=== PATIENT | male | born 1965 | race Caucasian/White ===

== ENCOUNTER 2016-11-13 15:16 | Inpatient (IN) | payer OTHER ==
[2016-11-13 16:05] LABS: APPEARANCE,URINE CLEAR; BILIRUBIN,URINE NEGATIVE (NEGATIVE); GLUCOSE, URINE NEGATIVE (NEGATIVE); KETONES,URINE NEGATIVE (NEGATIVE); LEUKOCYTE ESTERASE,URINE NEGATIVE (NEGATIVE); NITRITE,URINE NEGATIVE (NEGATIVE); PROTEIN,URINE NEGATIVE (NEGATIVE); URINE SPECIFIC GRAVITY 1.008; UROBILINOGEN,URINE NEGATIVE mg/dL (<2.0)
[2016-11-13] MEDS ORDERED: IPRATROPIUM/ALBUTEROL 0.5-2.5 MG/3 ML AMPUL NEB ONE ×3 (16:39→18:30)
[2016-11-13] MEDS ORDERED: OXYCODONE-ACETAMINOPHEN 5-325 MG TABLET PO ONE (17:52)
--- NOTE | 2016-11-13 18:14 | ER Document Report ---
ED General - General Chief Complaint: Shortness Of Breath Stated Complaint: WEAKNESS Mode of Arrival: Ambulatory Information source: Patient Notes: 51-year-old male presents with difficulty breathing over the past 2-3 weeks. Patient denies any fevers admits to shortness of breath. Patient denies any productivity to cough. [facility] [place] IN LAST 30 DAYS: No - HPI Onset: Last week Onset/Duration: Persistent Quality of pain: Achy Severity: Mild Pain Level: 1 Associated symptoms: Nonproductive cough, Shortness of breath Exacerbated by: Denies Relieved by: Denies Similar symptoms previously: Yes Recently seen / treated by doctor: Yes - Related Data Allergies/Adverse Reactions: No Known Allergies Allergy (Verified 05/27/14 08:48) Past Medical History - Social History Smoking Status: Former Smoker Cigarette use (# per day): No Chew tobacco use (# tins/day): No Smoking Education Provided: No Frequency of alcohol use: None Drug Abuse: None Family History: None - Past Medical History Cardiac Medical History: Reports: Hx Hypertension Pulmonary Medical History: Denies: Hx Tuberculosis GI Medical History: Reports: Hx Gastroesophageal Reflux Disease Psychiatric Medical History: Reports: Hx Bipolar Disorder, Hx Depression Past Surgical History: Reports: Hx Orthopedic Surgery, Hx Tonsillectomy. Denies : Hx Pacemaker - Immunizations Hx Diphtheria, Pertussis, Tetanus Vaccination: Yes - 2008 Review of Systems - Review of Systems Notes: REVIEW OF SYSTEMS: CONSTITUTIONAL : Denies fever, chills, or sweats. Denies recent illness. EENT: Denies eye, ear, throat, or mouth pain or symptoms. Denies nasal or sinus congestion or discharge. Denies throat, tongue, or mouth swelling or difficulty swallowing. CARDIOVASCULAR: Denies chest pain. Denies palpitations or racing or irregular heart beat. Denies ankle edema. RESPIRATORY: Admits shortness breath difficulty breathing GASTROINTESTINAL: Denies abdominal pain or distention. Denies nausea, vomiting , or diarrhea. Denies blood in vomitus, stools, or per rectum. Denies black, tarry stools. Denies constipation. GENITOURINARY: Denies difficulty urinating, painful urination, burning, frequency, blood in urine, or discharge. MUSCULOSKELETAL: Denies back or neck pain or stiffness. Denies joint pain or swelling. SKIN: Denies rash, lesions or sores. HEMATOLOGIC : Denies easy bruising or bleeding. LYMPHATIC: Denies swollen, enlarged glands. NEUROLOGICAL: Denies confusion or altered mental status. Denies passing out or loss of consciousness. Denies dizziness or lightheadedness. Denies headache. Denies weakness or paralysis or loss of use of either side. Denies problems with gait or speech. Denies sensory loss, numbness, or tingling. Denies seizures. PSYCHIATRIC: Denies anxiety or stress. Denies depression, suicidal ideation, or homicidal ideation. ALL OTHER SYSTEMS REVIEWED AND NEGATIVE. Dictation was performed using [employer] voice recognition software PHYSICAL EXAMINATION: GENERAL: Well-appearing, well-nourished and in no acute distress. Patient satting 85% without oxygen HEAD: Atraumatic, normocephalic. EYES: Pupils equal round and reactive to light, extraocular movements intact, sclera anicteric, conjunctiva are normal. ENT: Nares patent, oropharynx clear without exudates. Moist mucous membranes. NECK: Normal range of motion, supple without lymphadenopathy LUNGS: Decreased breath sounds all throughout, coarse wheezing HEART: Regular rate and rhythm without murmurs ABDOMEN: Soft, nontender, nondistended abdomen. No guarding, no rebound. No masses appreciated. Musculoskeletal: Normal range of motion, no pitting or edema. No cyanosis. NEUROLOGICAL: Cranial nerves grossly intact. Normal speech, normal gait. Normal sensory, motor exams PSYCH: Normal mood, normal affect. SKIN: Warm, Dry, normal turgor, no rashes or lesions noted. Physical Exam - Vital signs Vitals: Temp Pulse Resp BP Pulse Ox 98.2 F 64 21 H 144/83 H 92 11/13/16 15:31 11/13/16 15:31 11/13/16 15:31 11/13/16 15:31 11/13/16 15:31 Course - Re-evaluation Re-evalutation: 11/13/16 18:14 Patient was immediately placed on nasal cannula on arrival, lab work has been ordered and is pending nurse 11/13/16 19:42 Lab work does note mild hypokalemia, patient did have very coarse wheezing inspiratory and expiratory, he was given 3 DuoNeb nebs Solu-Medrol. I believe the patient's having COPD exacerbation. On room air patient is satting 85% and does require oxygenation. Looks well no pneumonia is noted, influenza was negative. Patient will be admitted to hospitalist service for further evaluation and care - Vital Signs Vital signs: Temp Pulse Resp BP Pulse Ox 98.2 F 64 21 H 144/83 H 97 11/13/16 15:31 11/13/16 15:31 11/13/16 15:31 11/13/16 15:31 11/13/16 15:53 - Laboratory Result Diagrams: 11/13/16 18:20 11/13/16 18:20 Laboratory results interpreted by me: 11/13/16 11/13/16 18:20 18:20 MCV 99 H RDW 14.5 H Sodium 147.2 H Potassium 3.1 L Carbon Dioxide 34 H Glucose 160 H Critical Care Note - Critical Care Note Total time excluding time spent on procedures (mins): 34 Comments: 34 minutes of critical care time spent in direct contact evaluating and reevaluating the patient, treating symptoms, reviewing labs and studies and speaking with family and consultants excluding any procedures Discharge - Discharge Clinical Impression: Hypoxemia, Obstructive chronic bronchitis with exacerbation Condition: Stable Disposition: ADMITTED INPATIENT Admitting Provider: Hospitalist Unit Admitted: Telemetry
[2016-11-13] MEDS ORDERED: METHYLPREDNISOLONE INJ 125 MG/2 ML SDV IV ONE (18:30)
[2016-11-13] MEDS ORDERED: PREGABALIN 100 MG CAPSULE PO ONE (18:36)
[2016-11-13 18:38] LABS: ABSOLUTE MONOCYTES (AUTO) 0.4 10^3/uL (0.1-1.4); ABSOLUTE NEUT (AUTO) 3.4 10^3/uL (1.7-8.2); BASOPHILS % (AUTO) 0.5 % (0-2); EOSINOPHILS % (AUTO) 0.7 % (0-6); HEMATOCRIT 43.7 % (37.9-51.0); HEMOGLOBIN 14.5 g/dL (13.5-17.0); HGB HCT DIFFERENCE -0.2; LYMPHOCYTES % (AUTO) 34.3 % (13-45); MEAN CORPUSCULAR HEMOGLOBIN 32.8 pg (27.0-33.4); MEAN CORPUSCULAR HGB CONC 33.2 g/dL (32.0-36.0); MEAN CORPUSCULAR VOLUME 99 fl (80-97); MONOCYTES % (AUTO) 6.8 % (3-13); RED BLOOD COUNT 4.42 10^6/uL (4.35-5.55); RED CELL DISTRIBUTION WIDTH 14.5 % (11.5-14.0); SEGMENTED NEUTROPHILS % (AUTO) 57.7 % (42-78); WHITE BLOOD COUNT 5.9 10^3/uL (4.0-10.5)
[2016-11-13 18:56] LABS: ALANINE AMINOTRANSFERASE 40 U/L (21-72); ALBUMIN 4.4 g/dL (3.5-5.0); ALKALINE PHOSPHATASE 97 U/L (38-126); ANION GAP 14 (5-19); ASPARTATE AMINO TRANSFERASE 26 U/L (17-59); BILIRUBIN,DIRECT 0.2 mg/dL (0.0-0.4); BILIRUBIN,TOTAL 0.9 mg/dL (0.2-1.3); BLOOD UREA NITROGEN 8 mg/dL (7-20); CALCIUM 9.4 mg/dL (8.4-10.2); CARBON DIOXIDE 34 mmol/L (22-30); CHLORIDE 99 mmol/L (98-107); CREATINE KINASE 71 U/L (55-170); GLUCOSE 160 mg/dL (75-110); POTASSIUM 3.1 mmol/L (3.6-5.0); SODIUM 147.2 mmol/L (137-145); TOTAL PROTEIN 7.4 g/dL (6.3-8.2)
[2016-11-13 19:08] LABS: CREATINE KINASE MB 0.77 ng/mL (<4.55)
[2016-11-13 19:10] LABS: TROPONIN I < 0.012 ng/mL
[2016-11-13] MEDS ORDERED: POTASSIUM CHLORIDE 10 MEQ TABLET.SA PO ONE (19:40)
[2016-11-14] MEDS ORDERED: ACETAMINOPHEN 325 MG TABLET PO PRN (02:17)
[2016-11-14] MEDS ORDERED: GUAIFENESIN SYRP 200 MG/10 ML UDC PO PRN (02:17)
[2016-11-14] MEDS ORDERED: NICOTINE 7 MG/24 HR PATCH.TD24 TD PRN (02:20)
--- NOTE | 2016-11-14 02:38 | PDOC H&P ---
History of Present Illness Admission Date/PCP: 11/13/16 20:27 MD Patient complains of: WEAKNESS History of Present Illness: SHARATH HOBSON is a 51 year old male, who denies any known chronic pulmonary disease, including asthma, COPD, or emphysema, but with known underlying hypertension, bipolar disorder, posttraumatic stress disorder, agoraphobia, who presents in referral from the local [facility] when he was noted to be hypoxic there. Patient does describe a several day history of dry cough. Nausea but no vomiting. No fever or chills. Occasional diarrhea. No chest or abdominal pain. When I entered the room, patient was standing trembling, denying any respiratory complaints at that time. He stated he had not taken his psychiatric medications for the last day or so, stating several times "I had no idea I was coming here." Stated he went to the [facility] today to be seen by a psychiatrist and was instead referred to the emergency room. States he stopped smoking 3 weeks ago. Could not verbalize exactly how much he did smoke. Denies alcohol or illicit drug use. According to his ER nurse, patient did try to leave the emergency room earlier, but was convinced to stay. Patient has been discussed with emergency room physician who evaluated the patient. Saturation dropped to 85% on room air in the emergency room, with coarse wheezing noted by the emergency room physician diffusely throughout both lungs.. Laboratory results are listed in [employer] and are reviewed. X-ray summary results are listed below, with full report(s) reviewed. . EKG reviewed. And compared to a tracing from July 25, 2012 Social history/personal habits: . Has adult children. Disabled due to his mental problems. Personal habits as noted above. Allergies/adverse reactions NKDA. Home medications Home medications initially autopopulated into [employer] may not accurately reflect patient's true medications, dosages, and/or frequencies. Unfortunately, patient uncertain of medications/dosages/frequencies, although he did state that he took Klonopin 1 mg by mouth 3 times a day.. REVIEW OF SYSTEMS: Constitutional: No fever or chills. Eyes: Wears glasses. ENT: No swallowing problems or complaints. No hearing problems or complaints. Pulmonary: See history and present illness. Cardiovascular: No current complaints, including chest pain. Gastrointestinal: See history and present illness. Skin: No current complaints, including rashes. Hematologic: No unusual easy bruising or bleeding. Neurologic: Chronic painful peripheral neuropathy. Musculoskeletal: No current complaints, including painful joints. Psychiatric: See history and present illness. Endocrine: No current complaints, including polyuria. Genitourinary: No current complaints, including dysuria. PHYSICAL EXAMINATION: Neither height nor weight are recorded on the chart.Temperature 98.2. Pulse 80 and regular. Blood pressure 155/93. 92% saturation on 2 L oxygen per nasal cannula. Respirations are 28 and unlabored, but patient again is quite anxious , with some trembling. Slightly overweight otherwise well-nourished well-developed though chronically ill-appearing male who appears in fair amount of distress. Standing. Slight trembling. Initially refused to sit down or lie down on his bed, due to his anxiety. Eventually was able to convince him to lie back on his bed. Female emergency room secretary to the vice president Reema is present. Skin is warm and dry. No grossly obvious evidence of rash in areas of skin examined. No subcutaneous nodules palpated. ENT: Hearing grossly normal to normal conversation. Tongue midline on protrusion pink and slightly moist. Eyes: No scleral icterus. Pupils equal and reactive to light at 4 mm. [place] conjunctivae. No raccoon eyes. Neck is supple and nontender to gentle active range of motion and palpation. Midline trachea. No palpable thyroid nodule mass enlargement or tenderness. Lymphatic: No palpable cervical or clavicular nodes. Neck and lymphatic exams limited by patient body habitus. Psychiatric: Difficult to evaluate due to his current status. See history and present illness. Also see above comments. Lungs: Auscultation reveals clear and equal breath sounds bilaterally. No use of accessory respiratory muscles. Cardiovascular: Heart regular rate and rhythm, without gallop murmur or rub. No carotid or abdominal aortic bruits. Was not able to adequately examine his lower extremities due to discomfort, which patient stated was due to his chronic neuropathy. "I hurt all the time in my legs and feet." No outward evidence of infection in the lower calves, ankles and feet by visual exam. Abdomen: soft, slightly: distended nontender with positive bowel sounds. Unable to adequately evaluate abdomen for masses or organomegaly due to distention. Extremities: Feet are warm and dry. No grossly obvious visual evidence of calf swelling. Neurologic: Moves all 4 extremities grossly normally. Patellar reflexes absent. Moves From a standing to a seated to a supine position without undue difficulty. Past Medical History Cardiac Medical History: Reports: Hypertension Pulmonary Medical History: Denies: Asthma, Chronic Obstructive Pulmonary Disease (COPD), Tuberculosis GI Medical History: Reports: Gastroesophageal Reflux Disease Psychiatric Medical History: Reports: Bipolar Disorder, Depression, Post Traumatic Stress Disorder - AgoraPhobia. Past Surgical History Past Surgical History: Reports: Orthopedic Surgery, Tonsillectomy Denies: Pacemaker Social History Information Source: Patient, Emergency Med Personnel, [facility] Records Lives with: Spouse/Significant other Smoking Status: Former Smoker Frequency of Alcohol Use: None Hx Recreational Drug Use: No Hx Prescription Drug Abuse: No - Advance Directive Resuscitation Status: Full Code Surrogate healthcare decision maker:: Family History Family History: None Parental Family History Reviewed: Yes Children Family History Reviewed: Yes Sibling(s) Family History Reviewed.: Yes Medication/Allergy Home Medications: RX: Baclofen [Baclofen 10 mg Tablet] 10 mg PO Q8 11/13/16 RX: Clonidine HCl [Catapres 0.1 mg Tablet] 0.1 mg PO Q8 11/13/16 RX: Divalproex Sodium [Depakote ER 500 mg Tab.sr] 1,000 mg PO DAILY 11/13/16 RX: Furosemide [Lasix] 80 mg PO DAILY 11/13/16 RX: Losartan Potassium [Cozaar 100 mg Tablet] 50 mg PO DAILY 11/13/16 RX: Mirtazapine [Remeron] 30 mg PO QHS 11/13/16 RX: Potassium Gluconate [Potassium] 99 mg PO DAILY 11/13/16 RX: Pregabalin [Lyrica] 150 mg PO Q8 11/13/16 RX: Trazodone HCl [Desyrel] 200 mg PO QHS 11/13/16 Albuterol Sulfate [Proair HFA] 1 - 2 puff IH Q4 PRN #1 inhaler 11/16/16 Prednisone [Deltasone 10 mg Tablet] 10 mg PO ASDIR PRN #21 tablet 11/16/16 RX: Doxycycline Hyclate 100 mg PO BID #14 capsule 11/16/16 Allergies/Adverse Reactions: No Known Allergies Allergy (Verified 05/27/14 08:48) Physical Exam Vital Signs: Temp Pulse Resp BP Pulse Ox 98.2 F 64 12 155/93 H 90 L 11/13/16 15:31 11/13/16 15:31 11/13/16 20:03 11/13/16 23:40 11/13/16 23:40 Results Impressions: Chest X-Ray 11/13/16 15:31 IMPRESSION: NO ACUTE RADIOGRAPHIC FINDING IN THE CHEST. Assessment & Plan - Diagnosis (1) Hypokalemia Is this a current diagnosis for this admission?: YesPlan: Potassium replacement with follow-up chemistry. (2) Hypoxemia Is this a current diagnosis for this admission?: YesPlan: Suspected due to underlying COPD exacerbation. Should clear with time and treatment. (3) Anxiety Is this a current diagnosis for this admission?: YesPlan: Resume home medications as appropriate once these have been determined and reviewed. (4) Bipolar disorder Qualifiers: Active/Remission status: remission status unspecified Qualified Code (s): F31.9 - Bipolar disorder, unspecified Is this a current diagnosis for this admission?: YesPlan: Resume home medications as appropriate once these have been determined and reviewed. (5) PTSD (post-traumatic stress disorder) Is this a current diagnosis for this admission?: YesPlan: Resume home medications as appropriate once these have been determined and reviewed. (6) Peripheral neuropathy Qualifiers: Peripheral neuropathy type: polyneuropathy, unspecified Qualified Code(s): G62.9 - Polyneuropathy, unspecified Is this a current diagnosis for this admission?: YesPlan: Resume home medications as appropriate once these have been determined and reviewed. (7) COPD exacerbation Is this a current diagnosis for this admission?: YesPlan: Patient will be admitted under COPD exacerbation protocol. Incentive spirometry twice a day. PRN DuoNeb's. With patient's current psychiatric stress level, will forego steroids, due to concern for worsening same with steroid psychosis. Antibiotics will consist of intravenous Zithromax and Rocephin.. Patient is a full code. I have strongly encouraged patient not to get out of bed without notifying staff , , to avoid a fall with injury. Knee high SCDs for DVT prophylaxis, along with subcutaneous Lovenox Impression and plans were discussed with patient, who concurs. Time spent in evaluation and management of patient: 66 minutes. - Inpatient Certification Based on my medical assessment, after consideration of the patient's comorbidities, presenting symptoms, or acuity I expect that the services needed warrant INPATIENT care.: Yes I certify that my determination is in accordance with my understanding of Medicare's requirements for reasonable and necessary INPATIENT services [42 CFR 412.3e].: Yes Medical Necessity: Significant Comorbidiites Make Outpatient Treatment Too Risky , Need Close Monitoring Due to Risk of Patient Decompensation, Need For Continuous Telemetry Monitoring, Need for Nebulizer Therapy and Monitoring of Response, Need for IV Antibiotics, Risk of Complication if Not Cared For in Hospital, Risk of Diagnosis Which Will Require Inpatient Eval/Care/Monitoring Post Hospital Care: D/C or Transfer Summary
[2016-11-14] MEDS ORDERED: CEFTRIAXONE 1 GM/D5W RTU 1 GM/50 ML RTUPB IV ONE (03:00)
[2016-11-14] MEDS: LORAZEPAM 0.5 MG TABLET PO PRN ×2 (03:01→21:04)
[2016-11-14 03:26] LABS: ABSOLUTE LYMPHOCYTES (AUTO) 0.5 10^3/uL (0.5-4.7); ABSOLUTE MONOCYTES (AUTO) 0.1 10^3/uL (0.1-1.4); ABSOLUTE NEUT (AUTO) 5.4 10^3/uL (1.7-8.2); BASOPHILS % (AUTO) 0.2 % (0-2); HEMATOCRIT 42.8 % (37.9-51.0); HEMOGLOBIN 14.3 g/dL (13.5-17.0); HGB HCT DIFFERENCE 0.1; LYMPHOCYTES % (AUTO) 8.3 % (13-45); MEAN CORPUSCULAR HEMOGLOBIN 32.6 pg (27.0-33.4); MEAN CORPUSCULAR HGB CONC 33.3 g/dL (32.0-36.0); MEAN CORPUSCULAR VOLUME 98 fl (80-97); MONOCYTES % (AUTO) 1.2 % (3-13); RED BLOOD COUNT 4.38 10^6/uL (4.35-5.55); SEGMENTED NEUTROPHILS % (AUTO) 90.3 % (42-78)
[2016-11-14 03:33] LABS: ANION GAP 16 (5-19); BLOOD UREA NITROGEN 11 mg/dL (7-20); CALCIUM 10.1 mg/dL (8.4-10.2); CARBON DIOXIDE 28 mmol/L (22-30); CHLORIDE 103 mmol/L (98-107); CREATININE RESULT 0.66 mg/dL (0.52-1.25); GLUCOSE 168 mg/dL (75-110); POTASSIUM 3.8 mmol/L (3.6-5.0); SODIUM 146.9 mmol/L (137-145)
[2016-11-14] MEDS: AZITHROMYCIN 500 MG in DEXTROSE 5%-WATER 250 ML IV SCH (09:19)
[2016-11-14] MEDS: ENOXAPARIN SODIUM INJ 40 MG/0.4 ML DISP.SYRIN SUBCUT SCH (09:20)
--- NOTE | 2016-11-14 10:15 | PDOC PROGRESS REPORT ---
Subjective Progress Note for:: 11/14/16 Subjective:: Reports the shortness of breath is improved. Physical Exam Vital Signs: Temp Pulse Resp BP Pulse Ox 97.7 F 69 16 158/94 H 93 11/14/16 07:55 11/14/16 08:57 11/14/16 08:57 11/14/16 07:55 11/14/16 08:57 Intake & Output 11/13/16 11/14/16 11/15/16 06:59 06:59 06:59 Intake Total 2 Balance 2 Weight 100.698 kg General appearance: PRESENT: no acute distress Eye exam: PRESENT: conjunctiva pink. ABSENT: scleral icterus Mouth exam: PRESENT: moist, tongue midline Neck exam: ABSENT: JVD Respiratory exam: PRESENT: rhonchi, wheezes - Few scattered expiratory wheezes. ABSENT: rales Cardiovascular exam: PRESENT: RRR. ABSENT: diastolic murmur, rubs, systolic murmur GI/Abdominal exam: PRESENT: normal bowel sounds, soft. ABSENT: distended, guarding, mass, organolmegaly, rebound, tenderness Extremities exam: ABSENT: calf tenderness, clubbing, pedal edema Neurological exam: PRESENT: alert, awake, oriented to person, oriented to place , oriented to time, oriented to situation, CN II-XII grossly intact. ABSENT: motor sensory deficit Psychiatric exam: PRESENT: appropriate affect Skin exam: PRESENT: dry, intact, warm. ABSENT: cyanosis, rash Results Laboratory Results: 11/14/16 03:11 11/14/16 03:11 11/14/16 11/14/16 11/14/16 03:11 03:11 03:11 WBC 6.0 RBC 4.38 Hgb 14.3 Hct 42.8 MCV 98 H MCH 32.6 MCHC 33.3 RDW 15.0 H Plt Count 245 Seg Neutrophils % 90.3 H Lymphocytes % 8.3 L Monocytes % 1.2 L Eosinophils % 0.0 Basophils % 0.2 Absolute Neutrophils 5.4 Absolute Lymphocytes 0.5 Absolute Monocytes 0.1 Absolute Eosinophils 0.0 Absolute Basophils 0.0 Sodium 146.9 H Potassium 3.8 Chloride 103 Carbon Dioxide 28 Anion Gap 16 BUN 11 Creatinine 0.66 Est GFR ( Amer) > 60 Est GFR (Non-Af Amer) > 60 Glucose 168 H Calcium 10.1 Magnesium 2.0 TSH 0.28 L Impressions: Chest X-Ray 11/13/16 15:31 IMPRESSION: NO ACUTE RADIOGRAPHIC FINDING IN THE CHEST. Assessment & Plan - Diagnosis (1) COPD exacerbation Is this a current diagnosis for this admission?: YesPlan: Patient reports he feels better but still having some hypoxia. We'll continue with the antibiotics as well as IV Solu-Medrol. We'll also continue nebulizers as needed (2) Hypoxemia Is this a current diagnosis for this admission?: YesPlan: Patient's room air saturations this morning are 85%. Continue with oxygen and continue treatment of COPD. (3) Hypokalemia Is this a current diagnosis for this admission?: YesPlan: Resolved. (4) AGAROPHOBIA Is this a current diagnosis for this admission?: YesPlan: We'll give Ativan as needed (5) Anxiety Is this a current diagnosis for this admission?: YesPlan: Ativan when necessary (6) Bipolar disorder Is this a current diagnosis for this admission?: YesPlan: Stable (7) PTSD (post-traumatic stress disorder) Is this a current diagnosis for this admission?: YesPlan: asymptomatic (8) Peripheral neuropathy Is this a current diagnosis for this admission?: Yes (9) Tobacco dependency Is this a current diagnosis for this admission?: Yes (10) Hyperglycemia Is this a current diagnosis for this admission?: YesPlan: We'll check fingerstick blood sugars and place on sliding scale insulin. - Time Time Spent with patient: 25-34 minutes - Inpatient Certification Medical Necessity: Need Close Monitoring Due to Risk of Patient Decompensation, Need for IV Antibiotics
[2016-11-14] MEDS ORDERED: DEXTROSE 40% GEL 15 GM TUBE PO PRN ×2 (10:16)
[2016-11-14] MEDS ORDERED: GLUCAGON,HUMAN RECOMB 1 MG INJ IM PRN (10:16)
[2016-11-14] MEDS ORDERED: INSULIN LISPRO 100 UNIT/ML 3 ML VIAL SUBCUT PRN (10:16)
[2016-11-14] MEDS ORDERED: DEXTROSE 50%-WATER 25 GM/50 ML DISP.SYRIN IV PRN ×2 (10:16)
[2016-11-14] MEDS ORDERED: LOSARTAN POTASSIUM 50 MG TABLET PO ONE (11:30)
[2016-11-14] MEDS: IPRATROPIUM/ALBUTEROL 0.5-2.5 MG/3 ML AMPUL NEB PRN ×2 (14:06→18:31)
[2016-11-14] MEDS: BACLOFEN 10 MG TABLET PO SCH ×2 (14:34→21:06)
[2016-11-14] MEDS: CLONIDINE HCL 0.1 MG TABLET PO SCH ×2 (14:35→21:05)
[2016-11-14] MEDS: PREGABALIN 75 MG CAPSULE PO SCH ×2 (14:36→21:06)
[2016-11-14] MEDS: METHYLPREDNISOLONE INJ 40 MG/1 ML SDV IV SCH ×2 (14:36→21:04)
[2016-11-14] MEDS: TRAZODONE HCL 50 MG TABLET PO SCH (21:07)
[2016-11-14] MEDS: MIRTAZAPINE 15 MG TABLET PO SCH (21:07)
[2016-11-14] MEDS: CEFTRIAXONE 1 GM/D5W RTU 1 GM/50 ML RTUPB IV SCH (21:08)
[2016-11-14] MEDS ORDERED: (PENDING PHARMACY ID) (Trazodone Hcl [Desyrel] 200 MG) PO SCH (22:00)
[2016-11-15 02:51] LABS: URINE BARBITURATES SCREEN NEGATIVE; URINE METHADONE SCREEN NEGATIVE; URINE OPIATES LOW NEGATIVE; URINE PHENCYCLIDINE SCREEN NEGATIVE
[2016-11-15] MEDS: METHYLPREDNISOLONE INJ 40 MG/1 ML SDV IV SCH ×3 (05:37→21:30)
[2016-11-15] MEDS: PREGABALIN 75 MG CAPSULE PO SCH ×3 (05:38→21:30)
[2016-11-15] MEDS: BACLOFEN 10 MG TABLET PO SCH ×3 (05:38→21:31)
[2016-11-15] MEDS: CLONIDINE HCL 0.1 MG TABLET PO SCH ×3 (05:38→21:31)
[2016-11-15 06:55] LABS: ABSOLUTE LYMPHOCYTES (AUTO) 1.2 10^3/uL (0.5-4.7); ABSOLUTE MONOCYTES (AUTO) 0.6 10^3/uL (0.1-1.4); ABSOLUTE NEUT (AUTO) 10.3 10^3/uL (1.7-8.2); BASOPHILS % (AUTO) 0.1 % (0-2); EOSINOPHILS % (AUTO) 0.1 % (0-6); HEMATOCRIT 41.5 % (37.9-51.0); HEMOGLOBIN 13.6 g/dL (13.5-17.0); HGB HCT DIFFERENCE -0.7; LYMPHOCYTES % (AUTO) 10.1 % (13-45); MEAN CORPUSCULAR HEMOGLOBIN 32.2 pg (27.0-33.4); MEAN CORPUSCULAR HGB CONC 32.8 g/dL (32.0-36.0); MEAN CORPUSCULAR VOLUME 98 fl (80-97); MONOCYTES % (AUTO) 5.2 % (3-13); RED BLOOD COUNT 4.22 10^6/uL (4.35-5.55); RED CELL DISTRIBUTION WIDTH 14.7 % (11.5-14.0); SEGMENTED NEUTROPHILS % (AUTO) 84.5 % (42-78)
[2016-11-15 06:56] LABS: WHITE BLOOD COUNT 12.2 10^3/uL (4.0-10.5)
[2016-11-15 07:00] LABS: ANION GAP 12 (5-19); BLOOD UREA NITROGEN 14 mg/dL (7-20); CALCIUM 9.7 mg/dL (8.4-10.2); CARBON DIOXIDE 30 mmol/L (22-30); CHLORIDE 105 mmol/L (98-107); CREATININE RESULT 0.68 mg/dL (0.52-1.25); GLUCOSE 143 mg/dL (75-110); POTASSIUM 4.1 mmol/L (3.6-5.0); SODIUM 147.3 mmol/L (137-145)
[2016-11-15] MEDS: IPRATROPIUM/ALBUTEROL 0.5-2.5 MG/3 ML AMPUL NEB PRN ×3 (07:45→17:12)
[2016-11-15] MEDS: AZITHROMYCIN 500 MG in DEXTROSE 5%-WATER 250 ML IV SCH (09:10)
[2016-11-15] MEDS: DIVALPROEX SODIUM 500 MG TAB.SR.24H PO SCH (09:11)
[2016-11-15] MEDS: FUROSEMIDE 80 MG TABLET PO SCH (09:11)
[2016-11-15] MEDS: ENOXAPARIN SODIUM INJ 40 MG/0.4 ML DISP.SYRIN SUBCUT SCH (09:13)
[2016-11-15] MEDS ORDERED: (PENDING PHARMACY ID) (Potassium Gluconate [Potassium] 99 MG) PO SCH (10:00)
[2016-11-15] MEDS: LORAZEPAM 0.5 MG TABLET PO PRN ×2 (10:25→17:10)
[2016-11-15] MEDS: LOSARTAN POTASSIUM 50 MG TABLET PO SCH (10:31)
--- NOTE | 2016-11-15 11:38 | PDOC PROGRESS REPORT ---
Subjective Progress Note for:: 11/15/16 Subjective:: Complains of anxiety. Physical Exam Vital Signs: Temp Pulse Resp BP Pulse Ox 97.6 F 75 18 125/61 91 L 11/15/16 08:24 11/15/16 08:24 11/15/16 08:24 11/15/16 08:24 11/15/16 08:24 Intake & Output 11/14/16 11/15/16 11/16/16 06:59 06:59 06:59 Intake Total 2 956 Output Total 400 Balance 2 556 Weight 100.698 kg 80.1 kg General appearance: PRESENT: no acute distress Eye exam: PRESENT: conjunctiva pink. ABSENT: scleral icterus Mouth exam: PRESENT: moist, tongue midline Neck exam: ABSENT: JVD Respiratory exam: PRESENT: wheezes - Few expiratory wheezes. ABSENT: rales, rhonchi Cardiovascular exam: PRESENT: RRR. ABSENT: diastolic murmur, rubs, systolic murmur Vascular exam: PRESENT: normal capillary refill GI/Abdominal exam: PRESENT: normal bowel sounds, soft. ABSENT: distended, guarding, mass, organolmegaly, rebound, tenderness Extremities exam: ABSENT: calf tenderness, clubbing, pedal edema Neurological exam: PRESENT: alert, awake, oriented to person, oriented to place , oriented to time, oriented to situation, CN II-XII grossly intact. ABSENT: motor sensory deficit Psychiatric exam: PRESENT: anxious Skin exam: PRESENT: dry, intact, warm. ABSENT: cyanosis, rash Results Laboratory Results: 11/15/16 05:49 11/15/16 05:49 11/15/16 11/15/16 05:49 05:49 WBC 12.2 H D RBC 4.22 L Hgb 13.6 Hct 41.5 MCV 98 H MCH 32.2 MCHC 32.8 RDW 14.7 H Plt Count 266 Seg Neutrophils % 84.5 H Lymphocytes % 10.1 L Monocytes % 5.2 Eosinophils % 0.1 Basophils % 0.1 Absolute Neutrophils 10.3 H Absolute Lymphocytes 1.2 Absolute Monocytes 0.6 Absolute Eosinophils 0.0 Absolute Basophils 0.0 Sodium 147.3 H Potassium 4.1 Chloride 105 Carbon Dioxide 30 Anion Gap 12 BUN 14 Creatinine 0.68 Est GFR ( Amer) > 60 Est GFR (Non-Af Amer) > 60 Glucose 143 H Calcium 9.7 Impressions: Chest X-Ray 11/13/16 15:31 IMPRESSION: NO ACUTE RADIOGRAPHIC FINDING IN THE CHEST. Assessment & Plan - Diagnosis (1) COPD exacerbation Is this a current diagnosis for this admission?: YesPlan: Patient reports he feels better but still having some hypoxia. We'll continue with the antibiotics as well as IV Solu-Medrol. We'll also continue nebulizers as needed (2) Hypoxemia Is this a current diagnosis for this admission?: YesPlan: Continue with oxygen and continue treatment of COPD. (3) Hypokalemia Is this a current diagnosis for this admission?: YesPlan: Resolved. (4) AGAROPHOBIA Is this a current diagnosis for this admission?: YesPlan: We'll give Ativan as needed (5) Anxiety Is this a current diagnosis for this admission?: YesPlan: Complaints of worsening anxiety. We will increase the Ativan dose (6) Bipolar disorder Qualifiers: Active/Remission status: remission status unspecified Qualified Code (s): F31.9 - Bipolar disorder, unspecified Is this a current diagnosis for this admission?: YesPlan: Stable (7) PTSD (post-traumatic stress disorder) Is this a current diagnosis for this admission?: YesPlan: asymptomatic (8) Peripheral neuropathy Qualifiers: Peripheral neuropathy type: polyneuropathy, unspecified Qualified Code(s): G62.9 - Polyneuropathy, unspecified Is this a current diagnosis for this admission?: Yes (9) Tobacco dependency Is this a current diagnosis for this admission?: Yes (10) Hyperglycemia Is this a current diagnosis for this admission?: YesPlan: We'll check fingerstick blood sugars and place on sliding scale insulin. - Time Time Spent with patient: 25-34 minutes - Inpatient Certification Medical Necessity: Need Close Monitoring Due to Risk of Patient Decompensation
--- NOTE | 2016-11-15 15:46 | EKG REPORT ---
SEVERITY:- ABNORMAL ECG - SINUS RHYTHM LEFT POSTERIOR FASCICULAR BLOCK : Confirmed by: Bonny Sandoval MD 15-Nov-2016 15:45:10
[2016-11-15] MEDS: MIRTAZAPINE 15 MG TABLET PO SCH (21:30)
[2016-11-15] MEDS: CEFTRIAXONE 1 GM/D5W RTU 1 GM/50 ML RTUPB IV SCH (21:31)
[2016-11-15] MEDS: TRAZODONE HCL 50 MG TABLET PO SCH (21:31)
[2016-11-16] MEDS: LORAZEPAM 0.5 MG TABLET PO PRN ×2 (02:46→09:56)
[2016-11-16] MEDS: BACLOFEN 10 MG TABLET PO SCH (05:29)
[2016-11-16] MEDS: CLONIDINE HCL 0.1 MG TABLET PO SCH (05:29)
[2016-11-16] MEDS: PREGABALIN 75 MG CAPSULE PO SCH (05:30)
[2016-11-16] MEDS: METHYLPREDNISOLONE INJ 40 MG/1 ML SDV IV SCH (05:30)
[2016-11-16 06:32] LABS: ABSOLUTE LYMPHOCYTES (AUTO) 1.5 10^3/uL (0.5-4.7); ABSOLUTE MONOCYTES (AUTO) 0.7 10^3/uL (0.1-1.4); ABSOLUTE NEUT (AUTO) 11.2 10^3/uL (1.7-8.2); BASOPHILS % (AUTO) 0.1 % (0-2); HEMATOCRIT 38.9 % (37.9-51.0); HEMOGLOBIN 12.9 g/dL (13.5-17.0); HGB HCT DIFFERENCE -0.2; LYMPHOCYTES % (AUTO) 11.1 % (13-45); MEAN CORPUSCULAR HEMOGLOBIN 32.6 pg (27.0-33.4); MEAN CORPUSCULAR HGB CONC 33.2 g/dL (32.0-36.0); MEAN CORPUSCULAR VOLUME 98 fl (80-97); MONOCYTES % (AUTO) 4.9 % (3-13); RED BLOOD COUNT 3.96 10^6/uL (4.35-5.55); RED CELL DISTRIBUTION WIDTH 14.9 % (11.5-14.0); SEGMENTED NEUTROPHILS % (AUTO) 83.9 % (42-78); WHITE BLOOD COUNT 13.3 10^3/uL (4.0-10.5)
[2016-11-16 06:51] LABS: ANION GAP 15 (5-19); BLOOD UREA NITROGEN 21 mg/dL (7-20); CALCIUM 9.2 mg/dL (8.4-10.2); CARBON DIOXIDE 27 mmol/L (22-30); CHLORIDE 103 mmol/L (98-107); CREATININE RESULT 0.76 mg/dL (0.52-1.25); GLUCOSE 127 mg/dL (75-110); POTASSIUM 4.1 mmol/L (3.6-5.0); SODIUM 145.1 mmol/L (137-145)
[2016-11-16] MEDS: IPRATROPIUM/ALBUTEROL 0.5-2.5 MG/3 ML AMPUL NEB PRN (08:43)
[2016-11-16] MEDS: DIVALPROEX SODIUM 500 MG TAB.SR.24H PO SCH (09:52)
[2016-11-16] MEDS: FUROSEMIDE 80 MG TABLET PO SCH (09:52)
[2016-11-16] MEDS: LOSARTAN POTASSIUM 50 MG TABLET PO SCH (09:53)
[2016-11-16] MEDS: ENOXAPARIN SODIUM INJ 40 MG/0.4 ML DISP.SYRIN SUBCUT SCH (09:53)
[2016-11-16] MEDS: AZITHROMYCIN 500 MG in DEXTROSE 5%-WATER 250 ML IV SCH (09:54)
[2016-11-16] MEDS ORDERED: POTASSIUM CHLORIDE 10 MEQ TABLET.SA PO SCH (10:00)
--- NOTE | 2016-11-16 12:58 | PDOC DISCHARGE SUMMARY ---
General - Admit/Disc Date/PCP Admission Date/Primary Care Provider: 11/14/16 02:17 Discharge Date: 11/16/16 - Discharge Diagnosis (1) Acute hypoxemic respiratory failure Is this a current diagnosis for this admission?: Yes (2) COPD exacerbation Is this a current diagnosis for this admission?: Yes (3) Bipolar disorder Is this a current diagnosis for this admission?: Yes (4) PTSD (post-traumatic stress disorder) Is this a current diagnosis for this admission?: Yes (5) Peripheral neuropathy Is this a current diagnosis for this admission?: Yes (6) Tobacco dependency Is this a current diagnosis for this admission?: Yes - Additional Information Resuscitation Status: Full Code Discharge Diet: Regular Discharge Activity: Slowly Increase Activity Home Medications: Baclofen [Baclofen 10 mg Tablet] 10 mg PO Q8 11/13/16 Clonidine HCl [Catapres 0.1 mg Tablet] 0.1 mg PO Q8 11/13/16 Divalproex Sodium [Depakote ER 500 mg Tab.sr] 1,000 mg PO DAILY 11/13/16 Furosemide [Lasix] 80 mg PO DAILY 11/13/16 Losartan Potassium [Cozaar 100 mg Tablet] 50 mg PO DAILY 11/13/16 Mirtazapine [Remeron] 30 mg PO QHS 11/13/16 Potassium Gluconate [Potassium] 99 mg PO DAILY 11/13/16 Pregabalin [Lyrica] 150 mg PO Q8 11/13/16 Trazodone HCl [Desyrel] 200 mg PO QHS 11/13/16 Albuterol Sulfate [Proair HFA] 1 - 2 puff IH Q4 PRN #1 inhaler 11/16/16 Doxycycline Hyclate 100 mg PO BID #14 capsule 11/16/16 Prednisone [Deltasone 10 mg Tablet] 10 mg PO ASDIR PRN #21 tablet 11/16/16 History of Present Illness Patient complains of: Shortness of breath History of Present Illness: SHARATH HOBSON is a 51 year old male that was [facility] the [facility] for [facility]ness of breath. Was admitted for COPD exacerbation. Hospital Course Hospital Course: Patient was omitted for COPD exacerbation. He was initially treated with IV Solu-Medrol, IV Rocephin, and IV azithromycin. Chest x-ray was negative for acute process. Blood cultures were negative. Patient's clinical condition improved. At time of discharge his lung exam was clear to auscultation. O2 sat was 91% on room air with exertion. He was approaching his baseline respiratory status. He is advised to discontinue smoking. He is discharged home on prednisone taper, oral doxycycline, when necessary albuterol HFA. Physical Exam Vital Signs: Temp Pulse Resp BP Pulse Ox 97.8 F 62 15 142/85 H 96 11/16/16 07:29 11/16/16 08:43 11/16/16 08:43 11/16/16 07:29 11/16/16 07:29 Intake & Output 11/15/16 11/16/16 11/17/16 06:59 06:59 06:59 Intake Total 956 2559 Output Total 400 900 Balance 556 1659 Weight 80.1 kg 100.5 kg GENERAL: No acute distress HEENT: Conjunctiva clear, nonicteric, moist mucous membranes, no JVD, midline trachea RESPIRATORY: Clear to auscultation bilaterally, no wheezes, no rhonchi CARDIAC: Regular rate and rhythm, no murmurs/gallops/rubs ABDOMEN: Soft, nondistended, nontender, positive bowel sounds, no rebound, no guarding EXTREMETIES: No edema, cyanosis, clubbing NEUROLOGIC: Alert, oriented to person/place/time, CN's grossly intact, no focal deficits SKIN: No rash, wounds PSYCH: Normal mood, normal affect Results Laboratory Results: 11/16/16 06:05 11/16/16 06:05 11/16/16 11/16/16 06:05 06:05 WBC 13.3 H RBC 3.96 L Hgb 12.9 L Hct 38.9 MCV 98 H MCH 32.6 MCHC 33.2 RDW 14.9 H Plt Count 233 Seg Neutrophils % 83.9 H Lymphocytes % 11.1 L Monocytes % 4.9 Eosinophils % 0.0 Basophils % 0.1 Absolute Neutrophils 11.2 H Absolute Lymphocytes 1.5 Absolute Monocytes 0.7 Absolute Eosinophils 0.0 Absolute Basophils 0.0 Sodium 145.1 H Potassium 4.1 Chloride 103 Carbon Dioxide 27 Anion Gap 15 BUN 21 H Creatinine 0.76 Est GFR ( Amer) > 60 Est GFR (Non-Af Amer) > 60 Glucose 127 H Calcium 9.2 Labs- Last Values WBC 13.3 10^3/uL (4.0-10.5) H 11/16/16 06:05 RBC 3.96 10^6/uL (4.35-5.55) L 11/16/16 06:05 Hgb 12.9 g/dL (13.5-17.0) L 11/16/16 06:05 Hct 38.9 % (37.9-51.0) 11/16/16 06:05 MCV 98 fl (80-97) H 11/16/16 06:05 MCH 32.6 pg (27.0-33.4) 11/16/16 06:05 MCHC 33.2 g/dL (32.0-36.0) 11/16/16 06:05 RDW 14.9 % (11.5-14.0) H 11/16/16 06:05 Plt Count 233 10^3/uL (150-450) 11/16/16 06:05 Seg Neutrophils % 83.9 % (42-78) H 11/16/16 06:05 Lymphocytes % 11.1 % (13-45) L 11/16/16 06:05 Monocytes % 4.9 % (3-13) 11/16/16 06:05 Eosinophils % 0.0 % (0-6) 11/16/16 06:05 Basophils % 0.1 % (0-2) 11/16/16 06:05 Absolute Neutrophils 11.2 10^3/uL (1.7-8.2) H 11/16/16 06:05 Absolute Lymphocytes 1.5 10^3/uL (0.5-4.7) 11/16/16 06:05 Absolute Monocytes 0.7 10^3/uL (0.1-1.4) 11/16/16 06:05 Absolute Eosinophils 0.0 10^3/uL (0.0-0.6) 11/16/16 06:05 Absolute Basophils 0.0 10^3/uL (0.0-0.2) 11/16/16 06:05 Sodium 145.1 mmol/L (137-145) H 11/16/16 06:05 Potassium 4.1 mmol/L (3.6-5.0) 11/16/16 06:05 Chloride 103 mmol/L (98-107) 11/16/16 06:05 Carbon Dioxide 27 mmol/L (22-30) 11/16/16 06:05 Anion Gap 15 (5-19) 11/16/16 06:05 BUN 21 mg/dL (7-20) H 11/16/16 06:05 Creatinine 0.76 mg/dL (0.52-1.25) 11/16/16 06:05 Est GFR ( Amer) > 60 (>60) 11/16/16 06:05 Est GFR (Non-Af Amer) > 60 (>60) 11/16/16 06:05 Glucose 127 mg/dL (75-110) H 11/16/16 06:05 POC Glucose 144 mg/dL (70-110) H 11/16/16 05:34 Calcium 9.2 mg/dL (8.4-10.2) 11/16/16 06:05 Magnesium 2.0 mg/dL (1.6-2.3) 11/14/16 03:11 Total Bilirubin 0.9 mg/dL (0.2-1.3) 11/13/16 18:20 Direct Bilirubin 0.2 mg/dL (0.0-0.4) 11/13/16 18:20 Indirect Bilirubin Not Reportable 11/13/16 18:20 Neonat Total Bilirubin Not Reportable 11/13/16 18:20 AST 26 U/L (17-59) 11/13/16 18:20 ALT 40 U/L (21-72) 11/13/16 18:20 Alkaline Phosphatase 97 U/L (38-126) 11/13/16 18:20 Creatine Kinase 71 U/L (55-170) 11/13/16 18:20 CK-MB (CK-2) 0.77 ng/mL (<4.55) 11/13/16 18:20 Troponin I < 0.012 ng/mL 11/13/16 18:20 NT-Pro-B Natriuret Pep 59 pg/mL (5-900) 11/13/16 18:20 Total Protein 7.4 g/dL (6.3-8.2) 11/13/16 18:20 Albumin 4.4 g/dL (3.5-5.0) 11/13/16 18:20 TSH 0.28 uIU/mL (0.47-4.68) L 11/14/16 03:11 Urine Color YELLOW 11/13/16 15:42 Urine Appearance CLEAR 11/13/16 15:42 Urine pH 7.0 (5.0-9.0) 11/13/16 15:42 Ur Specific Marshall 1.008 11/13/16 15:42 Urine Protein NEGATIVE mg/dL (NEGATIVE) 11/13/16 15:42 Urine Glucose (UA) NEGATIVE mg/dL (NEGATIVE) 11/13/16 15:42 Urine Ketones NEGATIVE mg/dL (NEGATIVE) 11/13/16 15:42 Urine Blood NEGATIVE (NEGATIVE) 11/13/16 15:42 Urine Nitrite NEGATIVE (NEGATIVE) 11/13/16 15:42 Urine Bilirubin NEGATIVE (NEGATIVE) 11/13/16 15:42 Urine Urobilinogen NEGATIVE mg/dL (<2.0) 11/13/16 15:42 Ur Leukocyte Esterase NEGATIVE (NEGATIVE) 11/13/16 15:42 Urine WBC (Auto) 0 /HPF 11/13/16 15:42 Urine Ascorbic Acid NEGATIVE (NEGATIVE) 11/13/16 15:42 Urine Opiates Screen NEGATIVE 11/15/16 01:45 Urine Methadone Screen NEGATIVE 11/15/16 01:45 Ur Barbiturates Screen NEGATIVE 11/15/16 01:45 Ur Phencyclidine Scrn NEGATIVE 11/15/16 01:45 Ur Amphetamines Screen NEGATIVE 11/15/16 01:45 U Benzodiazepines Scrn NEGATIVE 11/15/16 01:45 Urine Cocaine Screen NEGATIVE 11/15/16 01:45 U Marijuana (THC) Screen UNCONFIRMED POSITIVE 11/15/16 01:45 Influenza A (Rapid) NEGATIVE (NEGATIVE) 11/13/16 17:38 Influenza B (Rapid) NEGATIVE (NEGATIVE) 11/13/16 17:38 Impressions: Chest X-Ray 11/13/16 15:31 IMPRESSION: NO ACUTE RADIOGRAPHIC FINDING IN THE CHEST. Qualifiers PATEINT BEING DISCHARGED WITH ANY OF THE FOLLOWING DIAGNOSIS?: No Plan Discharge Plan: Discontinue smoking. Follow-up primary care provider. Time Spent: Less than 30 Minutes
[2016-11-16 13:18] VITALS: BP 136/79
== END 2016-11-16 14:06 | disposition home or self-care (01) | DRG 189 ==
LOC: ER 15:16 → EH 20:27 → UNDOADMIN 20:27 → EH 11-14 02:17 → 3S 11-14 04:48 → EH 11-14 04:48
PROVIDERS: ADMIT Family Medicine; ATTEND Family Medicine
DX: J96.01 Acute respiratory failure with hypoxia (principal); J44.1 Chronic obstructive pulmonary disease with (acute) exacerbation; E87.6 Hypokalemia; R73.9 Hyperglycemia, unspecified; F40.00 Agoraphobia, unspecified; F41.9 Anxiety disorder, unspecified; F31.9 Bipolar disorder, unspecified; F43.10 Post-traumatic stress disorder, unspecified; G62.9 Polyneuropathy, unspecified; Z79.899 Other long term (current) drug therapy; F17.200 Nicotine dependence, unspecified, uncomplicated
CPT/HCPCS: 36415; 71010; 80048; 80053; 80307; 81001; 82550; 82553; 82962; 83735; 83880; 84443; 84484; 85025; 87040; 87804; 93005; 93010; 94640; 94799; 96374; 99291; J0456; J0696; J1650; J1815; J2920; J2930; J3490; J7060; J7620